=== PATIENT | female | born 1990 | race Two or more races ===

== ENCOUNTER 2017-11-01 02:12 | Emergency (ER) | payer SELFPAY ==
[~2017-11-01] VITALS: Ht 157.5 cm; Wt 94.5 kg
[2017-11-01 02:14] VITALS: BP 162/105
== END 2017-11-01 04:48 | disposition left against medical advice (07) ==
LOC: ER 02:13
DX: R07.89 Other chest pain (principal); R06.02 Shortness of breath; Z53.21 Procedure and treatment not carried out due to patient leaving prior to being seen by health care provider
CPT/HCPCS: 93005; 99281